=== PATIENT | female | born 1965 | race Two or more races ===

== ENCOUNTER 2024-06-30 19:46 | Emergency (ER) | payer OTHER ==
[2024-06-30 19:55] VITALS: BP 137/68; PULSE 85; RESP 16; TEMP 98.1; BMI 28.1
[2024-06-30 20:28] LABS: BASO % 0.6 % (0-2.0); HEMATOCRIT 39.9 % (32.4-45.2); HEMOGLOBIN 13.3 GM/dL (10.7-15.3); LYMPH % 37.7 % (8-40); MCH 29.5 pg (25.7-33.7); MCHC 33.3 g/dl (32.0-36.0); MEAN CELL VOLUME 88.6 fl (80-96); MONO % 7.6 % (3.8-10.2); NEUT % 53.1 % (42.8-82.8); PLATELET COUNT 173 10^3/uL (134-434); WHITE BLOOD COUNT 5.3 K/mm3 (4.0-10.0)
[2024-06-30 20:34] LABS: INR 0.9 (0.83-1.09); PROTHROMBIN TIME (PATIENT) 10.2 SEC (9.7-13.0)
[2024-06-30 20:38] LABS: ACTIVATED PTT 30.1 SECONDS (25.2-36.5)
[2024-06-30 20:56] LABS: CALCIUM 9.7 mg/dL (8.5-10.1)
[2024-06-30 20:57] LABS: ALBUMIN 3.7 g/dl (3.4-5.0); BLOOD UREA NITROGEN 18.7 mg/dL (7-18)
[2024-06-30 21:00] LABS: CREATININE 0.7 mg/dL (0.55-1.3)
[2024-06-30 21:01] LABS: TOT PROT 7.3 g/dl (6.4-8.2)
[2024-06-30 21:02] LABS: BILIRUBIN,TOTAL 0.7 mg/dL (0.2-1)
[2024-06-30] MEDS ORDERED: ASPIRIN 81 MG CHEWABLE TABLETS ONE (21:02)
[2024-06-30] MEDS: ASPIRIN 81 MG CHEWABLE TABLETS PO ONE (21:06)
== END 2024-06-30 21:41 | disposition left against medical advice (07) ==
LOC: JER 19:46
DX: G45.9 Transient cerebral ischemic attack, unspecified (principal)
CPT/HCPCS: 36415; 70450-TC; 80053; 80061; 82550; 82962; 83036; 84484; 85025; 85610; 85730; 86850; 86900; 86901; 93005; 93010; 99285-25